=== PATIENT | male | born 1980 | race Caucasian/White ===

== ENCOUNTER 2020-08-03 08:15 | Inpatient (IN) | payer SELFPAY ==
[2020-08-03] MEDS ORDERED: Sodium Chloride 0.9% 10 ML Syringe FLUSH PRN ×2 (08:31→10:48)
--- NOTE | 2020-08-03 08:31 | EDM.PDOC ---
ED HPI GENERAL MEDICAL PROBLEM - General Chief Complaint: General Stated Complaint: SOB, CP Time Seen by Provider: 08/03/20 08:30 Source of Information: Reports: Patient, Family ([id number], Austin. , Kate), Old Records ([facility] chart/EMR) History Limitations: Reports: No Limitations - History of Present Illness INITIAL COMMENTS - FREE TEXT/NARRATIVE: The patient was brought to the emergency room via private automobile by his [id number] for evaluation of progressive heart flutter associated with 7/10 epigastric burning radiating to the retrosternal region with nonspecific fatigue, dizziness, nausea, diaphoresis, and 3 episodes of emesis shortly prior to arrival. Note that the patient was evaluated by his regular provider, JUDY Sandy at the [facility] yesterday with newly diagnosed diabetes mellitus and Metformin started at that time. Initial symptoms started after he woke up on 05/31 at about 6 AM with progressive symptoms since yesterday evening. The patient denies any heart flutter, orthostasis, orthopnea, paresthesias, recent decreased exercise tolerance, or any other anginal-type symptoms. No recent history of other abdominal pain, diarrhea, melena, gross hematochezia, or any food intolerance, including fatty foods, etc. with some recent constipation with last bowel movement about 5 days ago. He denies any gross hematuria, colic, or other UTI symptoms. The patient also denies any recent fever, cough, wheezing, dyspnea, etc.. He denies any known exposure to infection, food poisoning, etc. He did not take his medications this morning. Onset: Gradual Onset Date: 07/29/20 Onset Time: 06:00 Duration: Constant, Getting Worse Location: Reports: Chest (Radiation as above), Abdomen (As above). Denies: Head, Face, Neck, Upper Extremity, Left, Upper Extremity, Right, Radiates to Quality: Reports: Burning Severity: Moderate Improves with: Reports: None Worsens with: Reports: None Context: Reports: Other (As above). Denies: Sick Contact, Trauma Associated Symptoms: Reports: Chest Pain (As above), Diaphoresis, Nausea/Vomi ting, Weakness. Denies: Confusion, Cough, Fever/Chills, Headaches, Loss of Appetite, Malaise, Rash, Seizure, Shortness of Breath, Syncope Treatments BUCK PRESSER: Reports: Other (see below) (None ) Epigastric Pain Score (Numeric/FACES): 7 - Related Data Allergies Allergy/AdvReac Type Severity Reaction Status Date / Time No Known Allergies Allergy Verified 08/03/20 08:28 Home Meds: Home Meds buPROPion HCL [Bupropion Xl] 150 mg PO DAILY 08/03/20 [History] metFORMIN HCl [Metformin HCl] 500 mg PO BID 08/03/20 [History] Past Medical History HEENT History: Reports: Impaired Vision, Otitis Media, Other (See Below). Denies: Allergic Rhinitis, Cataract, Glaucoma, Hard of Hearing, Macular Degeneration, Retinal Detachment Other HEENT History: Soft contact lenses and glasses. Recurrent otitis media with no surgery required. No history of diabetic retinopathy. Cardiovascular History: Reports: Other (See Below). Denies: Afib, Aneurysm, Arrhythmia, Blood Clots/VTE/DVT, CAD, Cardiomyopathy, Heart Failure, Heart Murmur, High Cholesterol, Hypertension, [place], PVD, Syncope Other Cardiovascular History: Patient does not know his cholesterol status. Respiratory History: Reports: None. Denies: Asthma, Bronchitis, Recurrent, COPD, Intubation, Previous, PE, Pneumonia, Recurrent, Pneumothorax, Sleep Apnea, TB Gastrointestinal History: Reports: Gastritis, GERD. Denies: Celiac Disease, Cholelithiasis, Chronic Constipation, Colon Polyp, Fecal Incontinence, GI Bleed, Hepatitis, Helicobacter Pylori, Hiatal Hernia, Inflammatory Bowel Disease, Irritable Bowel Syndrome, Jaundice, Pancreatitis Genitourinary History: Reports: None. Denies: Acute Renal Failure, BPH, Chronic Renal Insuffiency, Diabetic Nephropathy, Renal Calculus, STD, Urinary Incontinence, UTI, Recurrent Musculoskeletal History: Reports: Arthritis, Back Pain, Chronic, Neck Pain, Chronic, Osteoarthritis. Denies: Amputation, Fracture, Gout, RA, SLE Neurological History: Reports: None. Denies: Cerebral Aneurysms, Concussion, CVA, Headaches, Chronic, Head Trauma, Migraines, MS, Neuropathy, Diabetic, Neuropathy, Peripheral, Parkinson's, Seizure, TIA, Vertigo Psychiatric History: Reports: Addiction, Anxiety, Depression, Other (See Below). Denies: Abuse, Victim of, ADD, ADHD, Psych Hospitalization(s), PTSD, Suicide Attempt, Suicidal Ideation Other Psychiatric History: Alcohol and illicit drug use as below. Endocrine/Metabolic History: Reports: Diabetes, Type II, Other (See Below). Denies: Diabetes, Type I, Diabetes Mellitus, Type 3c, Hypothyroidism, Obesity/BMI 30+ Other Endocrine/Metabolic History: AODM newly diagnosed on 08/02/2020 with likely insulin-dependent on 08/03/2020 Hematologic History: Reports: None. Denies: Anemia, Blood Transfusion(s), Iron Deficiency Immunologic History: Reports: None. Denies: AIDS, HIV, SLE Oncologic (Cancer) History: Reports: None. Denies: Basal Cell Carcinoma, Colon, Hodgkin's Lymphoma, Leukemia, Lymphoma, Malignant Melanoma, Non-Hodgkin's Lymphoma, Prostate, Squamous Cell Carcinoma Dermatologic History: Reports: None. Denies: Eczema, Psoriasis - Infectious Disease History Infectious Disease History: Reports: Chicken Pox. Denies: C-Difficile, Helicobacter Pylori, Measles, Meningitis, Mononucleosis, MRSA, Mumps, Novel Coronavirus, Pertussis (Whooping Cough), Rheumatic Fever, Rubella, Scarlet Fever, Shingles, TB, VRE - Past Surgical History Head Surgeries/Procedures: Reports: None HEENT Surgical History: Reports: Oral Surgery, Other (See Below). Denies: Adenoidectomy, Cataract Surgery, Eye Surgery, Laser Surgery, LASIK, Myringotomy w Tube(s), Naso-Sinus Surgery, Tonsillectomy Other HEENT Surgeries/Procedures: [place] teeth extraction x4. Cardiovascular Surgical History: Reports: None. Denies: Varicose Respiratory Surgical History: Reports: None. Denies: Thoracentesis GI Surgical History: Reports: EGD, Other (See Below). Denies: Appendectomy, Cholecystectomy, Colonoscopy, Hernia, Abdominal, Hernia, Inguinal, Hernia Repair/Other Other GI Surgeries/Procedures: EGD with negative biopsy for H. pylori however mild positive gastritis on 08/21/2005. Male Surgical History: Reports: Circumcision, Other (See Below). Denies: Vasectomy Other Male Surgeries/Procedures: Circumcision as an infant. Endocrine Surgical History: Reports: None. Denies: Thyroid Biopsy Neurological Surgical History: Reports: None, Scoliosis (About carpal tunnel or ganglion cysts). Denies: C-Spine (Neck or back surgery), Discectomy, Laminectomy, Lumbar Spine, Sacral Spine, Spinal Fusion, Thoracic Spine, Vertebroplasty Musculoskeletal Surgical History: Reports: None. Denies: Arthroscopic Procedure, Carpal Tunnel, Ganglion Cyst, Joint Replacement, ORIF (Scope procedure), Shoulder Surgery Oncologic Surgical History: Reports: None Dermatological Surgical History: Reports: None (Note) - Past Imaging History Past Imaging History: Reports: CAT Scan (Head on 03/24/2005.), Ultrasound (Soft tissue ultrasound of the cervical region on 01/20/2012 and 10/31/2011), Venous Do ppler (Negative of the left leg on 09/24/2011.) Social & Family History - Family History HEENT: Reports: None. Denies: Glaucoma, Macular Degeneration, Retinal Detachment Cardiac: Reports: None. Denies: Afib, Aneurysm, Arrhythmia, Blood Clots/VTE/DVT, CAD, Heart Failure, Heart Murmur, High Cholesterol, Hypertension, WA, Pacemaker, Syncope Respiratory: Reports: None. Denies: Asthma, COPD, PE, Pneumothorax, Sleep Apnea GI: Reports: Bowel Obstruction, Other (See Below). Denies: Celiac Disease, Cholelithiasis, Colon Polyps, GERD, GI bleed, Inflammatory Bowel Disease, Irritable Bowel Syndrome, PUD Other GI Family History: Father with intestinal torsion with secondary obstruction. : Reports: None. Denies: Renal Calculus, Renal Disease/Insufficiency OBGYN: Reports: None. Denies: Endometriosis, Recurrent Spontaneous Musculoskeletal: Reports: Arthritis, Osteoarthritis, RA, Other (See Below). Denies: Gout, SLE Other Musculoskeletal Family History: Paternal grandmother with rheumatoid arthritis. Neurological: Reports: Alzheimers Disease, Dementia, Other (See Below). Denies: CVA, Migraines, MS, Parkinson's, Seizure, TIA Other Neurological Family History: Paternal grandmother with organic brain syndrome. Psychiatric: Reports: None. Denies: Abuse, Victim of, ADD, ADHD, Anxiety, Depression, Psych Hospitalization(s), PTSD, Suicide Attempt Endocrine/Metabolic: Reports: None. Denies: Diabetes, Gestational, Diabetes, Type I, Diabetes, type II, Diabetes Mellitus, Type 3c, Hypothyroidism, IDDM Hematologic: Reports: None. Denies: Anemia, SLE Immunologic: Reports: None. Denies: AIDS, HIV, SLE Dermatologic: Reports: None. Denies: Eczema, Psoriasis Oncologic: Reports: None. Denies: Colon, Hodgkin's Lymphoma, Leukemia, Lymphoma, Non-Hodgkin's Lymphoma, Prostate, Skin - Tobacco Use Tobacco Use Status *Q: Former Tobacco User Tobacco Use Within Last Twelve Months: No Years of Tobacco use: 5 Packs/Tins Daily: 1 Packs/Tins Daily Comment: Previous chewing tobacco and cigarette use between ages 11 and 16 with patient smoking 1 pack/day. Used Tobacco, but Quit: Yes Smoking Cessation Information Provided To Patient: No Second Hand Smoke Exposure: Yes Source of Second Hand Smoke Exposure: smokes Second Hand Smoke Education Provided: Yes - Caffeine Use Caffeine Use: Reports: None. Denies: Coffee, Energy Drinks, Soda, Tea - Alcohol Use Alcohol Use History: Yes Days Per Week of Alcohol Use: 7 Number of Drinks Per Day: 10 Number of Drinks Per Day Comment: Alcohol abuse starting at age 19 with beer, mixed drinks and wine intake. No previous alcohol treatment. Total Drinks Per Week: 70 Date of Last Drink: 07/28/20 Alcohol Use in Last Twelve Months: Yes Alcohol Use Frequency: Binges, Daily - Recreational Drug Use Recreational Drug Use: Yes Drug Use in Last 12 Months: Yes Recreational Drug Type: Reports: Cocaine (Sniffs cocaine every few months and started using in college as a teenager), Marijuana/Hashish (Started marijuana use in his 20s with current weekly use.). Denies: Amphetamines (Speed), Heroin, Inhalants (Glues, Solvents, Aerosols), LSD (Acid), Methamphetamine, Morphine, Oxycodone - Living Situation & Occupation Living situation: Reports: (November 2014 with no children together), (First with no children from that relationship), with Family (Second and 1 child from her previous marriage insisted) Occupation: Employed (Tee and welder/fitter) ED ROS GENERAL - Review of Systems Review Of Systems: Comprehensive ROS is negative, except as noted in HPI. ED EXAM, GENERAL - Physical Exam Exam: See Below Exam Limited By: No Limitations General Appearance: Alert, WD/WN, No Apparent Distress, Anxious (Moderate including moderate hyperventilation) Eye Exam: Bilateral Eye: EOMI, Normal Inspection (No vertigo or nystagmus), PERRL Ears: Normal External Exam, Normal Canal, Hearing Grossly Normal, Normal TMs Nose: Normal Inspection, Normal Mucosa, No Blood Throat/Mouth: Normal Lips, Normal Teeth, Normal Gums, Normal Voice, No Airway Compromise. No: Normal Oropharynx (Dry oral mucosa), Dysphagia, Inflammation, Perioral Cyanosis Head: Atraumatic, Normocephalic. No: Facial Swelling, Facial Tenderness, Sinus Tenderness Neck: Normal Inspection, Supple, Non-Tender, Full Range of Motion. No: Carotid Bruit, Lymphadenopathy (L), Lymphadenopathy (R), Thyromegaly Respiratory/Chest: No Respiratory Distress, Lungs Clear, Normal Breath Sounds, No Accessory Muscle Use, Chest Non-Tender. No: Pleural Rub, Retractions Cardiovascular: Normal Peripheral Pulses, No Edema, No Gallop, No JVD, No Murmur, No Rub, Tachycardia (Regular rhythm). No: Gallop/S3, Gallop/S4, Friction Rub Peripheral Pulses: 2+: Radial (L), Radial (R), Dorsalis Pedis (L), Dorsalis Pedis (R) GI/Abdominal: Normal Bowel Sounds, Soft, Non-Tender, No Organomegaly, No Distention, No Abnormal Bruit, No Mass, Pelvis Stable. No: Guarding (Male) Exam: Deferred Rectal (Males) Exam: Deferred Back Exam: Normal Inspection, Full Range of Motion. No: CVA Tenderness (L), CVA Tenderness (R), Muscle Spasm Extremities: Normal Inspection, Normal Range of Motion, Non-Tender, No Pedal Edema, Normal Capillary Refill. No: Anum's Sign Neurological: Alert, Oriented, CN II-XII Intact, Normal Cognition, Normal Gait, Normal Reflexes (Negative Babinski's), No Motor/Sensory Deficits Psychiatric: Anxious (Moderate as above). No: Depressed Mood Skin Exam: Warm, Dry, Intact, Normal Color, No Rash, Diaphoretic (Initially at time of patient arrival Per nurses history however resolved at time of my exam). No: Petechiae Lymphatic: No Adenopathy #1 Interpretation EKG Date: 08/03/20 Time: 08:50 Rhythm: Other (Sinus tachycardia) Rate (Beats/Min): 104 [place]: Normal (Neutral) P-Wave: Enlarged (Moderate diffuse biphasic P waves with mild poor wave progression in the anterior leads) QRS: Normal (0.09 seconds) ST-T: Other (Noisy baseline with nonspecific ST changes with borderline peaked T waves) QT: Normal ME/PQ Interval: 0.18 seconds Comparison: NA - No Prior EKG EKG Interpretation Comments: 1. No acute ischemic changes 2. Left atrial enlargement 3. Sinus tachycardia Course - Vital Signs Last Recorded V/S: Last Vital Signs Temp 36.6 C 08/03/20 08:21 Pulse 110 H 08/03/20 08:50 Resp 30 H 08/03/20 08:50 BP 149/93 H 08/03/20 08:50 Pulse Ox 100 08/03/20 08:50 Vital Signs - 24 hr 08/03/20 08/03/20 08/03/20 08:21 08:31 08:42 Temperature [ 36.6 C Temporal] Pulse, 127 H Peripheral Pulse, 136 H 120 H Peripheral [ Pulse Oximetry] Respiratory 40 H 28 H Rate Blood Pressure 153/92 H Blood Pressure 153/92 H 136/97 H [Left Upper Arm ] O2 Sat by Pulse 100 100 Oximetry 08/03/20 08:50 Temperature [ Temporal] Pulse, Peripheral Pulse, 110 H Peripheral [ Pulse Oximetry] Respiratory 30 H Rate Blood Pressure Blood Pressure 149/93 H [Left Upper Arm ] O2 Sat by Pulse 100 Oximetry - Orders/Labs/Meds Orders: Active Orders 24 hr Category Date Time Status Blood Glucose Check, Bedside [RC] STAT Care 08/03/20 08:15 Ordered Blood Glucose Check, Bedside [RC] STAT Care 08/03/20 09:41 Ordered Cardiac Monitoring [RC] . DIRECTED Care 08/03/20 08:31 Active EKG Documentation Completion [RC] ASDIRECTED Care 08/03/20 08:31 Active Oxygen Therapy, ED [RC] PRN Care 08/03/20 08:31 Active Peripheral IV Care [RC] . DIRECTED Care 08/03/20 08:31 Active Pulse Oximetry [RC] CONTINUOUS Care 08/03/20 08:31 Active Up With Assistance [RC] PFP Care 08/03/20 08:31 Active Vital Signs [RC] PFP Care 08/03/20 08:31 Active Nothing per Oral Now Diet [DIET] Diet 08/03/20 Breakfast Active Chest 1V Frontal [CR] Stat Exams 08/03/20 08:31 Ordered Chest PE [Ang Chest] [CT] Stat Exams 08/03/20 09:42 Ordered CULTURE BLOOD [BC] Stat Lab 08/03/20 08:36 Ordered CULTURE BLOOD [BC] Stat Lab 08/03/20 08:36 Ordered CULTURE URINE [RM] Routine Lab 08/03/20 08:31 Ordered URINALYSIS W/MICROSCOPIC [UA W/MICROSCOPIC] [URIN] Lab 08/03/20 08:34 Ordered Routine Dextrose 50% in Water Med 08/03/20 08:35 Active 50 ml IV ASDIRECTED PRN Dextrose 50% in Water Med 08/03/20 09:46 Ordered 50 ml IV ASDIRECTED PRN Glucagon,Human Recombinant [GlucaGen] Med 08/03/20 08:35 Active 1 mg IM ASDIRECTED PRN Glucagon,Human Recombinant [GlucaGen] Med 08/03/20 09:46 Ordered 1 mg IM ASDIRECTED PRN Sodium Chloride 0.9% [Normal Saline] 1,000 ml Med 08/03/20 09:44 Ordered IV .BOLUS Sodium Chloride 0.9% [Saline Flush] Med 08/03/20 08:31 Active 10 ml FLUSH ASDIRECTED PRN Blood Culture x2 Reflex Set [OM.PC] Urgent Oth 08/03/20 08:36 Ordered Isolation [COMM] Routine Ot 08/03/20 08:35 Active Obtain Past Medical Record [OM.PC] Urgent Oth 08/03/20 08:31 Active Peripheral IV Insertion Adult [OM.PC] Stat Oth 08/03/20 08:31 Ordered Resuscitation Status Stat Resus Stat 08/03/20 08:31 Ordered Medication Orders Dextrose/Water (50% Dextrose In Water 50 Ml Syringe) 50 ml IV ASDIRECTED PRN PRN Reason: Hypoglycemia Dextrose/Water (50% Dextrose In Water 50 Ml Syringe) 50 ml IV ASDIRECTED PRN PRN Reason: Hypoglycemia Glucagon (Glucagon,Human Recombinant 1 Mg Vial) 1 mg IM ASDIRECTED PRN PRN Reason: Hypoglycemia Glucagon (Glucagon,Human Recombinant 1 Mg Vial) 1 mg IM ASDIRECTED PRN PRN Reason: Hypoglycemia Sodium Chloride (Normal Saline) 1,000 mls @ 999 mls/hr IV .BOLUS ONE Stop: 08/03/20 10:44 Last Admin: 08/03/20 10:00 Dose: 999 mls/hr Documented by: Insulin Human Regular 100 unit (/ Sodium Chloride) 100 mls @ 9.072 mls/hr IV TITRATE EMILEE; Protocol Last Admin: 08/03/20 10:32 Dose: 0.1 units/kg/hr, 9.072 mls/hr Documented by: Sodium Chloride (Sodium Chloride 0.9% 10 Ml Syringe) 10 ml FLUSH ASDIRECTED PRN PRN Reason: Keep Vein Open Labs: Laboratory Tests 08/03/20 08/03/20 08/03/20 Range/Units 08:30 08:30 08:30 WBC 17.2 H (4.0-10.2) K/uL RBC 5.49 H (4.33-5.41) M/uL Hgb 17.3 H (13.1-16.8) g/dL Hct 49.9 H (39.0-49.0) % MCV 90.9 (84.0-98.0) fL MCH 31.5 (28.2-33.3) pg MCHC 34.7 (31.7-36.0) g/dL RDW 12.5 (11.2-14.1) % Plt Count 443 H (150-350) K/uL Neut % (Auto) 89.6 H (45.0-80.0) % Lymph % (Auto) 4.7 L (10.0-50.0) % Lucas % (Auto) 5.4 (2.0-14.0) % Eos % (Auto) 0.1 (0.0-5.0) % Baso % (Auto) 0.2 (0.0-2.0) % Neut # (Auto) 15.39 H (1.40-7.00) K/uL Lymph # (Auto) 0.81 (0.50-3.50) K/uL Lucas # (Auto) 0.92 (0.00-1.00) K/uL Eos # (Auto) 0.01 (0.00-0.50) K/uL Baso # (Auto) 0.04 (0.00-0.20) K/uL PT 9.4 L (9.5-12.0) SEC INR 0.9 APTT 24.7 (24.5-32.8) SEC D-Dimer, Quantitative 1820 H (0-400) ng/mL Sodium (136-145) mmol/L Potassium (3.5-5.1) mmol/L Chloride (98-107) mmol/L Carbon Dioxide (21.0-32.0) mmol/L BUN (7-18) mg/dL Creatinine (0.51-1.17) mg/dL Est Cr Clr Drug Dosing Estimated GFR (MDRD) mL/min Glucose (70-99) mg/dL POC Glucose (70-99) mg/dL Lactic Acid (0.4-2.0) mmol/L Uric Acid (2.6-7.2) mg/dL Calcium (8.5-10.1) mg/dL Phosphorus (2.6-4.7) mg/dL Magnesium (1.8-2.4) mg/dL Total Bilirubin (0.2-1.0) mg/dL AST (15-37) U/L ALT (12-78) U/L Alkaline Phosphatase (46-116) IU/L Creatine Kinase (26-308) U/L Creatine Kinase Index (0.0-2.5) % CK-MB (CK-2) (0.00-3.60) ng/mL Troponin I (0.000-0.056) ng/mL NT-Pro-B Natriuret Pep (0-125) pg/mL Total Protein (6.4-8.2) g/dL Albumin (3.4-5.0) g/dL TSH, Ultra Sensitive (0.358-3.740) mIU/mL Ketones SARS-CoV-2 RNA (ALEX) (NEGATIVE) 08/03/20 08/03/20 08/03/20 Range/Units 08:30 08:30 08:30 WBC (4.0-10.2) K/uL RBC (4.33-5.41) M/uL Hgb (13.1-16.8) g/dL Hct (39.0-49.0) % MCV (84.0-98.0) fL MCH (28.2-33.3) pg MCHC (31.7-36.0) g/dL RDW (11.2-14.1) % Plt Count (150-350) K/uL Neut % (Auto) (45.0-80.0) % Lymph % (Auto) (10.0-50.0) % Lucas % (Auto) (2.0-14.0) % Eos % (Auto) (0.0-5.0) % Baso % (Auto) (0.0-2.0) % Neut # (Auto) (1.40-7.00) K/uL Lymph # (Auto) (0.50-3.50) K/uL Lucas # (Auto) (0.00-1.00) K/uL Eos # (Auto) (0.00-0.50) K/uL Baso # (Auto) (0.00-0.20) K/uL PT (9.5-12.0) SEC INR APTT (24.5-32.8) SEC D-Dimer, Quantitative (0-400) ng/mL Sodium 134 L (136-145) mmol/L Potassium 4.2 (3.5-5.1) mmol/L Chloride 93 L (98-107) mmol/L Carbon Dioxide 4.2 L* (21.0-32.0) mmol/L BUN 16 (7-18) mg/dL Creatinine 1.22 H (0.51-1.17) mg/dL Est Cr Clr Drug Dosing TNP Estimated GFR (MDRD) > 60 mL/min Glucose 495 H* (70-99) mg/dL POC Glucose (70-99) mg/dL Lactic Acid 3.7 H (0.4-2.0) mmol/L Uric Acid 10.3 H (2.6-7.2) mg/dL Calcium 10.2 H (8.5-10.1) mg/dL Phosphorus 7.2 H (2.6-4.7) mg/dL Magnesium 2.1 (1.8-2.4) mg/dL Total Bilirubin 0.4 (0.2-1.0) mg/dL AST 10 L (15-37) U/L ALT 34 (12-78) U/L Alkaline Phosphatase 106 (46-116) IU/L Creatine Kinase 46 (26-308) U/L Creatine Kinase Index 3.7 H (0.0-2.5) % CK-MB (CK-2) 1.70 (0.00-3.60) ng/mL Troponin I 0.000 (0.000-0.056) ng/mL NT-Pro-B Natriuret Pep 62 (0-125) pg/mL Total Protein 9.4 H (6.4-8.2) g/dL Albumin 4.9 (3.4-5.0) g/dL TSH, Ultra Sensitive 2.377 (0.358-3.740) mIU/mL Ketones SARS-CoV-2 RNA (ALEX) (NEGATIVE) 08/03/20 08/03/20 08/03/20 Range/Units 08:40 08:40 09:46 WBC (4.0-10.2) K/uL RBC (4.33-5.41) M/uL Hgb (13.1-16.8) g/dL Hct (39.0-49.0) % MCV (84.0-98.0) fL MCH (28.2-33.3) pg MCHC (31.7-36.0) g/dL RDW (11.2-14.1) % Plt Count (150-350) K/uL Neut % (Auto) (45.0-80.0) % Lymph % (Auto) (10.0-50.0) % Lucas % (Auto) (2.0-14.0) % Eos % (Auto) (0.0-5.0) % Baso % (Auto) (0.0-2.0) % Neut # (Auto) (1.40-7.00) K/uL Lymph # (Auto) (0.50-3.50) K/uL Lucas # (Auto) (0.00-1.00) K/uL Eos # (Auto) (0.00-0.50) K/uL Baso # (Auto) (0.00-0.20) K/uL PT (9.5-12.0) SEC INR APTT (24.5-32.8) SEC D-Dimer, Quantitative (0-400) ng/mL Sodium (136-145) mmol/L Potassium (3.5-5.1) mmol/L Chloride (98-107) mmol/L Carbon Dioxide (21.0-32.0) mmol/L BUN (7-18) mg/dL Creatinine (0.51-1.17) mg/dL Est Cr Clr Drug Dosing Estimated GFR (MDRD) mL/min Glucose (70-99) mg/dL POC Glucose 456 H* (70-99) mg/dL Lactic Acid (0.4-2.0) mmol/L Uric Acid (2.6-7.2) mg/dL Calcium (8.5-10.1) mg/dL Phosphorus (2.6-4.7) mg/dL Magnesium (1.8-2.4) mg/dL Total Bilirubin (0.2-1.0) mg/dL AST (15-37) U/L ALT (12-78) U/L Alkaline Phosphatase (46-116) IU/L Creatine Kinase (26-308) U/L Creatine Kinase Index (0.0-2.5) % CK-MB (CK-2) (0.00-3.60) ng/mL Troponin I (0.000-0.056) ng/mL NT-Pro-B Natriuret Pep (0-125) pg/mL Total Protein (6.4-8.2) g/dL Albumin (3.4-5.0) g/dL TSH, Ultra Sensitive (0.358-3.740) mIU/mL Ketones Small-20 mg/dl SARS-CoV-2 RNA (ALEX) Negative (NEGATIVE) Blood cultures x2 were collected Stat Accu-Chek on arrival 489 mg percent Stat Accu-Chek at 9:41 AM 456 mg percent Urine specimen with culture and sensitivity could not be collected prior to admission. Microbiology 08/03/20 08:55 Influenza Type A Antigen Screen - Final Nasal, Unspecified NEGATIVE INFLUENZA A VIRUS AG REFERENCE RANGE: NEGATIVE Influenza Type B Antigen Screen - Final NEGATIVE INFLUENZA B VIRUS AG REFERENCE RANGE: NEGATIVE Meds: Medications Generic Name Dose Route Start Last Admin Trade Name Freq PRN Reason Stop Dose Admin Dextrose/Water 50 ml 08/03/20 08:35 50% Dextrose In Water 50 Ml Syringe IV ASDIRECTED PRN Hypoglycemia Dextrose/Water 50 ml 08/03/20 09:46 50% Dextrose In Water 50 Ml Syringe IV ASDIRECTED PRN Hypoglycemia Glucagon 1 mg 08/03/20 08:35 Glucagon,Human Recombinant 1 Mg Vial IM ASDIRECTED PRN Hypoglycemia Glucagon 1 mg 08/03/20 09:46 Glucagon,Human Recombinant 1 Mg Vial IM ASDIRECTED PRN Hypoglycemia Sodium Chloride 1,000 mls @ 999 mls/hr 08/03/20 09:44 08/03/20 10:00 Normal Saline IV 08/03/20 10:44 999 mls/hr .BOLUS ONE Administration Insulin Human Regular 100 unit 100 mls @ 9.072 mls/hr 08/03/20 10:15 08/03/20 10:32 / Sodium Chloride IV 0.1 units/kg/hr TITRATE EMILEE 9.072 mls/hr Administration Protocol 0.1 UNITS/KG/HR Sodium Chloride 10 ml 08/03/20 08:31 Sodium Chloride 0.9% 10 Ml Syringe FLUSH ASDIRECTED PRN Keep Vein Open Discontinued Medications Generic Name Dose Route Start Last Admin Trade Name Kristi PRN Reason Stop Dose Admin Calcium Acetate 667 mg 08/03/20 09:42 08/03/20 10:21 Calcium Acetate 667 Mg Cap PO 08/03/20 09:43 667 mg ONETIME ONE Administration Ceftriaxone Sodium 2 gm 08/03/20 10:11 08/03/20 10:23 Ceftriaxone 2 Gm Vial IVPUSH 08/03/20 10:12 2 gm ONETIME ONE Administration Diazepam 2.5 mg 08/03/20 08:33 08/03/20 08:46 Diazepam 10 Mg/2 Ml Syringe IVPUSH 08/03/20 08:34 2.5 mg ONETIME ONE Administration Diazepam 2.5 mg 08/03/20 09:51 08/03/20 10:11 Diazepam 10 Mg/2 Ml Syringe IVPUSH 08/03/20 09:52 2.5 mg ONETIME ONE Administration Famotidine 40 mg 08/03/20 08:31 08/03/20 09:00 Famotidine 20 Mg/2 Ml Sdv IVPUSH 08/03/20 08:32 40 mg ONETIME ONE Administration Sodium Chloride 1,000 mls @ 999 mls/hr 08/03/20 08:33 08/03/20 08:55 Normal Saline IV 08/03/20 09:33 999 mls/hr .BOLUS ONE Administration Ceftriaxone Sodium 1 gm/ 100 mls @ 200 mls/hr 08/03/20 09:41 08/03/20 10:13 Sodium Chloride IV 08/03/20 10:10 Not Given ONETIME ONE Insulin Human Regular 10 unit 08/03/20 08:35 08/03/20 08:56 Insulin Regular, Human 100 Units/Ml 3 Ml Vial IV 08/03/20 08:36 10 units ONETIME ONE Administration Insulin Human Regular 10 unit 08/03/20 09:46 08/03/20 09:55 Insulin Regular, Human 100 Units/Ml 3 Ml Vial IV 08/03/20 09:47 10 units ONETIME ONE Administration Iopamidol 100 ml 08/03/20 09:44 08/03/20 10:34 Iopamidol 755 Mg/Ml 100 Ml Bottle IVPUSH 08/03/20 09:45 100 ml ONETIME STA Administration Iopamidol Confirm 08/03/20 09:51 Iopamidol 755 Mg/Ml 100 Ml Bottle Administered 08/03/20 09:52 Dose 100 ml .ROUTE .STK-MED ONE Metoprolol Tartrate 2.5 mg 08/03/20 08:31 08/03/20 08:42 Metoprolol Tartrate 5 Mg/5 Ml Sdv IVPUSH 08/03/20 08:32 2.5 mg ONETIME ONE Administration - Radiology Interpretation Free Text/Narrative:: [employer] showed initial sinus tachycardia in the 120s to 130s with improvement to the [id number] after therapy as below. Occasional PVCs noted with no ectopy or arrhythmia. Chest x-ray, portable, shows mild pulmonary obstructive disease with no cardiomegaly, CHF, pulmonary infiltrates, pneumothorax, etc. Departure - Departure Time of Disposition: 10:40 Disposition: Admitted As Inpatient 64 Condition: Fair Clinical Impression: IDDM (insulin dependent diabetes mellitus), Sinus tachycardia, Dehydration, Peptic reflux disease, Ketoacidosis, D-dimer, elevated, Tobacco abuse counseling, Illicit drug use, continuous, Mixed anxiety depressive disorder, Hyperphosphatemia, PVC's (premature ventricular contractions), Lactic acid increased, Elevated blood pressure reading, Hyponatremia - Discharge Information *PRESCRIPTION DRUG MONITORING PROGRAM REVIEWED*: Not Applicable *COPY OF PRESCRIPTION DRUG MONITORING REPORT IN PATIENT MOHINDER: Not Applicable Sepsis Event Note (ED) - Evaluation Sepsis Screening Result: No Definite Risk - Focused Exam Vital Signs: Vital Signs Temp Pulse Pulse Resp BP BP Pulse Ox 08/03/20 08:50 110 H 30 H 149/93 H 100 08/03/20 08:42 127 H 153/92 H 08/03/20 08:31 120 H 28 H 136/97 H 100 08/03/20 08:21 36.6 C 136 H 40 H 153/92 H 100 - Problem List & Annotations (1) IDDM (insulin dependent diabetes mellitus) SNOMED Code(s): 86198402 Code(s): ICY7138 - Status: Acute Priority: High Current Visit: Yes Onset Date: 08/03/20 Annotation/Comment:: Newly diagnosed diabetes mellitus on 08/02/2020 as above with patient initiated on low-dose Metformin therapy. Patient is likely insulin-dependent with 10 units of Humulin regular IV x2 were given in the emergency with continuation of IV Humulin regular infusion as per standard protocol. Note mild ketoacidosis with secondary hyperventilation, etc. Glycosylated hemoglobin and lipid profile to be conducted in the a.m. No chest pain or anginal type symptoms with normal EKG and cardiac enzymes, which will be repeated in the a.m. (2) Ketoacidosis SNOMED Code(s): 27760886 Code(s): E87.2 - ACIDOSIS Status: Acute Priority: High Current Visit: Yes Onset Date: 08/03/20 Annotation/Comment:: Decompensated AODM, which is now insulin-dependent, as above. Consider blood gases depending on his clinical course. (3) Lactic acid increased SNOMED Code(s): 47652404 Code(s): E87.2 - ACIDOSIS Status: Acute Priority: High Current Visit: Yes Onset Date: 08/03/20 Annotation/Comment:: Note ketoacidosis as above. No direct indication of sepsis, however aggressive IV hydration as above with additional initiation of IV Rocephin therapy in the emergency room. Sepsis protocol to be followed with repeat lactic acid level in about 3 hours with other blood work secondary to his decompensated IDDM. (4) Dehydration SNOMED Code(s): 84439590 Code(s): E86.0 - DEHYDRATION Status: Acute Priority: High Current Visit: Yes Onset Date: 08/03/20 Annotation/Comment:: Dehydration secondary to decompensated diabetes mellitus, which is now insulin-dependent. Aggressive IV hydration, including initial 2 L of normal saline IV bolus, which was started in the emergency room. Further aggressive IV hydration as per standard insulin protocol. (5) D-dimer, elevated SNOMED Code(s): 775339384 Code(s): R79.89 - OTHER SPECIFIED ABNORMAL FINDINGS OF BLOOD CHEMISTRY Status: Acute Priority: High Current Visit: Yes Onset Date: 08/03/20 Annotation/Comment:: CTA of the chest using PE protocol was ordered in the emergency room with results pending at time of dictation. Subcu Lovenox at VTE dose for now, although no clinical evidence of DVT or PE. Consider venous Doppler studies of the lower extremities, although this evaluation will not be available in this facility until 08/06. (6) Elevated blood pressure reading SNOMED Code(s): 55749866 Code(s): R03.0 - ELEVATED BLOOD-PRESSURE READING, W/O DIAGNOSIS OF HTN Status: Acute Priority: Medium Current Visit: Yes Onset Date: 08/03/20 Annotation/Comment:: Secondary to current decompensated diabetes mellitus. No previous history of hypertension. Low-dose IV Lopressor was given both for heart rate and blood pressure control in the emergency room. Continue to observe for now. (7) Hyperphosphatemia SNOMED Code(s): 03122917 Code(s): E83.39 - OTHER DISORDERS OF PHOSPHORUS METABOLISM Status: Acute Priority: High Current Visit: Yes Onset Date: 08/03/20 Annotation/Comment:: PhosLo initiated in the emergency room. (8) Illicit drug use, continuous SNOMED Code(s): 572225535 Code(s): F19.90 - OTHER PSYCHOACTIVE SUBSTANCE USE, UNSPECIFIED, U NCOMPLICATED Status: Chronic Priority: High Current Visit: Yes Annotation/Comment:: Note illicit drug use as above. Patient denies IV drug use. No evidence of withdrawal symptoms at this time. IV diazepam given in the emergency room as above for control of his anxiety, distress, hyperventilation, etc. (9) Mixed anxiety depressive disorder SNOMED Code(s): 239161014 Code(s): F41.8 - OTHER SPECIFIED ANXIETY DISORDERS Status: Chronic Priority: High Current Visit: Yes Annotation/Comment:: Moderate control with illicit drug use and alcohol abuse as above. Continue to observe closely with medication adjustment depending on his clinical course. (10) PVC's (premature ventricular contractions) SNOMED Code(s): 61126302 Code(s): I49.3 - VENTRICULAR PREMATURE DEPOLARIZATION Status: Acute Priority: Medium Current Visit: Yes Onset Date: 08/03/20 Annotation/Comment:: Nonsymptomatic. Observe for now. Note IV Lopressor given as above. (11) Peptic reflux disease SNOMED Code(s): 528763993 Code(s): K21.9 - GASTRO-ESOPHAGEAL REFLUX DISEASE WITHOUT ESOPHAGITIS Status: Chronic Priority: Medium Current Visit: Yes Annotation/Comment:: High-dose IV Pepcid given as GI prophylaxis with complete resolution of those symptoms prior to admission. (12) Sinus tachycardia SNOMED Code(s): 17409336 Code(s): R00.0 - TACHYCARDIA, UNSPECIFIED Status: Acute Priority: High Current Visit: Yes Onset Date: 08/03/20 Annotation/Comment:: Secondary to ketoacidosis as above. Continue aggressive IV hydration, etc. (13) Tobacco abuse counseling SNOMED Code(s): 532493609, 903989832, 872956122 Code(s): Z71.6 - TOBACCO ABUSE COUNSELING Status: Chronic Priority: Medium Current Visit: Yes Annotation/Comment:: smokes. Tobacco cessation information at discharge. Patient should also discontinue marijuana use. (14) Hyponatremia SNOMED Code(s): 81332542 Code(s): E87.1 - HYPO-OSMOLALITY AND HYPONATREMIA Status: Acute Priority: Medium Current Visit: Yes Onset Date: 08/03/20 Annotation/Comment:: IV fluids as above. - Problem List Review Problem List Initiated/Reviewed/Updated: Yes - My Orders Last 24 Hours: My Active Orders 08/03/20 Breakfast Nothing per Oral Now Diet [DIET] 08/03/20 08:15 Blood Glucose Check, Bedside [RC] STAT 08/03/20 08:31 Cardiac Monitoring [RC] . DIRECTED EKG Documentation Completion [RC] ASDIRECTED Oxygen Therapy, ED [RC] PRN Peripheral IV Care [RC] . DIRECTED Pulse Oximetry [RC] CONTINUOUS Up With Assistance [RC] PFP Vital Signs [RC] PFP Chest 1V Frontal [CR] Stat CULTURE URINE [RM] Routine Sodium Chloride 0.9% [Saline Flush] 10 ml FLUSH ASDIRECTED PRN Obtain Past Medical Record [OM.PC] Urgent Peripheral IV Insertion Adult [OM.PC] Stat Resuscitation Status Stat 08/03/20 08:34 URINALYSIS W/MICROSCOPIC [UA W/MICROSCOPIC] [URIN] Routine 08/03/20 08:35 Dextrose 50% in Water 50 ml IV ASDIRECTED PRN Glucagon,Human Recombinant [GlucaGen] 1 mg IM ASDIRECTED PRN Isolation [COMM] Routine 08/03/20 08:36 CULTURE BLOOD [BC] Stat CULTURE BLOOD [BC] Stat Blood Culture x2 Reflex Set [OM.PC] Urgent 08/03/20 09:41 Blood Glucose Check, Bedside [RC] STAT 08/03/20 09:42 Chest PE [Ang Chest] [CT] Stat 08/03/20 09:44 Sodium Chloride 0.9% [Normal Saline] 1,000 ml IV .BOLUS 08/03/20 09:46 Dextrose 50% in Water 50 ml IV ASDIRECTED PRN Glucagon,Human Recombinant [GlucaGen] 1 mg IM ASDIRECTED PRN - Assessment/Plan Admission H&P: Please use this note as an admission H&P Last 24 Hours: My Active Orders 08/03/20 Breakfast Nothing per Oral Now Diet [DIET] 08/03/20 08:15 Blood Glucose Check, Bedside [RC] STAT 08/03/20 08:31 Cardiac Monitoring [RC] . DIRECTED EKG Documentation Completion [RC] ASDIRECTED Oxygen Therapy, ED [RC] PRN Peripheral IV Care [RC] . DIRECTED Pulse Oximetry [RC] CONTINUOUS Up With Assistance [RC] PFP Vital Signs [RC] PFP Chest 1V Frontal [CR] Stat CULTURE URINE [RM] Routine Sodium Chloride 0.9% [Saline Flush] 10 ml FLUSH ASDIRECTED PRN Obtain Past Medical Record [OM.PC] Urgent Peripheral IV Insertion Adult [OM.PC] Stat Resuscitation Status Stat 08/03/20 08:34 URINALYSIS W/MICROSCOPIC [UA W/MICROSCOPIC] [URIN] Routine 08/03/20 08:35 Dextrose 50% in Water 50 ml IV ASDIRECTED PRN Glucagon,Human Recombinant [GlucaGen] 1 mg IM ASDIRECTED PRN Isolation [COMM] Routine 08/03/20 08:36 CULTURE BLOOD [BC] Stat CULTURE BLOOD [BC] Stat Blood Culture x2 Reflex Set [OM.PC] Urgent 08/03/20 09:41 Blood Glucose Check, Bedside [RC] STAT 08/03/20 09:42 Chest PE [Ang Chest] [CT] Stat 08/03/20 09:44 Sodium Chloride 0.9% [Normal Saline] 1,000 ml IV .BOLUS 08/03/20 09:46 Dextrose 50% in Water 50 ml IV ASDIRECTED PRN Glucagon,Human Recombinant [GlucaGen] 1 mg IM ASDIRECTED PRN Assessment:: As above Plan: As above. Extensive precautions were given to the patient and his , who are in agreement with the treatment plan. The patient will require about 3-4 days of inpatient/acute care secondary to multiple health problems as above. [facility] physician assumes care later this morning. I will resume patient's care on 08/04.
[2020-08-03] MEDS ORDERED: Glucagon,Human Recombinant 1 MG Vial IM PRN ×2 (08:35→09:46)
[2020-08-03] MEDS ORDERED: 50% Dextrose in Water 50 ML Syringe IV PRN ×2 (08:35→09:46)
[2020-08-03] MEDS: Metoprolol Tartrate 5 MG/5 ML SDV IVPUSH ONE (08:42)
[2020-08-03] MEDS: Sodium Chloride 0.9% 1,000 ML IV ONE ×2 (08:55→10:00)
[2020-08-03] MEDS: Insulin Regular, Human 100 Units/ML 3 ML Vial IV ONE ×2 (08:56→09:55)
[2020-08-03] MEDS: Famotidine 20 MG/2 ML SDV IVPUSH ONE (09:00)
[2020-08-03 09:01] LABS: PTT,PARTIAL THROMBOPLSTIN TIME 24.7 SEC (24.5-32.8)
[2020-08-03 09:08] LABS: CHLORIDE,CL 93 mmol/L (98-107); SODIUM,NA 134 mmol/L (136-145)
[2020-08-03] MEDS ORDERED: Iopamidol 755 Mg/ML 100 ML Bottle ONE (09:51)
[2020-08-03] MEDS: cefTRIAXone 1 GM in Sodium Chloride 0.9% 100 ML IV ONE (10:13)
[2020-08-03] MEDS: Calcium Acetate 667 MG Cap PO ONE (10:21)
[2020-08-03] MEDS: cefTRIAXone 2 GM Vial IVPUSH ONE (10:23)
[2020-08-03] MEDS: Iopamidol 755 Mg/ML 100 ML Bottle IVPUSH STA (10:34)
[2020-08-03] MEDS ORDERED: Temazepam 15 MG Cap PO PRN (10:48)
[2020-08-03] MEDS ORDERED: Enoxaparin 100 MG/1 ML Syringe SUBCUT SCH (11:00)
[2020-08-03] MEDS ORDERED: Acetaminophen 325 MG Tab PO PRN (11:00)
[2020-08-03] MEDS: Sodium Chloride 0.9% 1,000 ML IV SCH (11:15)
[2020-08-03 11:23] LABS: HEMOGLOBIN A1C 13.7 % (4.3-5.7)
[2020-08-03 11:51] LABS: PCO2 ARTERIAL,POC 8 mmHg (35-48)
[2020-08-03 14:05] LABS: PCO2 ARTERIAL,POC 15 mmHg (35-48)
[2020-08-03 14:30] LABS: CHLORIDE,CL 100 mmol/L (98-107); SODIUM,NA 135 mmol/L (136-145)
[2020-08-03] MEDS: Dextrose 5%-0.9% NaCl 1,000 ML IV SCH (14:59)
--- NOTE | 2020-08-03 15:03 | PCM.DCSUM1 ---
Discharge Summary - Hospital Course Free Text/Narrative:: Pt seen in ER by Dr Stein Now transferred to [facility] with DKA Dr Kebede accepting See lab and vitals Brief History: Pt remains in DKA and acidotic Pt transfer to [facility] - Discharge Data Discharge Date: 08/03/20 Discharge Disposition: DC/Tfer to Acute Hospital 02 Condition: Good - Referral to Home Health Primary Care Physician: Patricia Cali NP - Discharge Diagnosis/Problem(s) (1) IDDM (insulin dependent diabetes mellitus) SNOMED Code(s): 59505829 ICD Code: [id number] - Status: Acute Priority: High Current Visit: Yes Onset Date: 08/03/20 Problem Details: Newly diagnosed diabetes mellitus on 08/02/2020 as above with patient initiated on low-dose Metformin therapy. Patient is likely insulin-dependent with 10 units of Humulin regular IV x2 were given in the emergency with continuation of IV Humulin regular infusion as per standard protocol. Note mild ketoacidosis with secondary hyperventilation, etc. Glycosylated hemoglobin and lipid profile to be conducted in the a.m. No chest pain or anginal type symptoms with normal EKG and cardiac enzymes, which will be repeated in the a.m. (2) Ketoacidosis SNOMED Code(s): 72658542 ICD Code: E87.2 - ACIDOSIS Status: Acute Priority: High Current Visit: Yes Onset Date: 08/03/20 Problem Details: Decompensated AODM, which is now insulin-dependent, as above. Consider blood gases depending on his clinical course. - Discharge Plan *PRESCRIPTION DRUG MONITORING PROGRAM REVIEWED*: Not Applicable *COPY OF PRESCRIPTION DRUG MONITORING REPORT IN PATIENT MOHINDER: Not Applicable Home Medications: Home Meds buPROPion HCL [Bupropion Xl] 150 mg PO DAILY 08/03/20 [History] metFORMIN HCl [Metformin HCl] 500 mg PO BID 08/03/20 [History] Forms: ED Department Discharge Referrals: Patricia Cali NP [Primary Care Provider] - - Discharge Summary/Plan Comment DC Time >30 min.: No - General Info Date of Service: 08/03/20 Admission Dx/Problem (Free Text: Pt admitted with DKA Functional Status: Reports: Pain Controlled - Review of Systems HEENT: Reports: No Symptoms Pulmonary: Reports: Shortness of Breath Gastrointestinal: Reports: Abdominal Pain, Nausea, Vomiting Genitourinary: Reports: No Symptoms Musculoskeletal: Reports: No Symptoms, Back Pain Psychiatric: Reports: Confusion - Patient Data Vitals - Most Recent: Last Vital Signs Temp 98.2 F 08/03/20 12:15 Pulse 102 H 08/03/20 14:00 Resp 19 08/03/20 14:00 BP 102/67 08/03/20 14:00 Pulse Ox 100 08/03/20 14:00 Weight - Most Recent: 200 lb Lab Results - Last 24 hrs: Laboratory Results - last 24 hr 08/03/20 08/03/20 08/03/20 Range/Units 08:30 08:30 08:30 WBC 17.2 H (4.0-10.2) K/uL RBC 5.49 H (4.33-5.41) M/uL Hgb 17.3 H (13.1-16.8) g/dL Hct 49.9 H (39.0-49.0) % MCV 90.9 (84.0-98.0) fL MCH 31.5 (28.2-33.3) pg MCHC 34.7 (31.7-36.0) g/dL RDW 12.5 (11.2-14.1) % Plt Count 443 H (150-350) K/uL Neut % (Auto) 89.6 H (45.0-80.0) % Lymph % (Auto) 4.7 L (10.0-50.0) % [place] % (Auto) 5.4 (2.0-14.0) % Eos % (Auto) 0.1 (0.0-5.0) % Baso % (Auto) 0.2 (0.0-2.0) % Neut # (Auto) 15.39 H (1.40-7.00) K/uL Lymph # (Auto) 0.81 (0.50-3.50) K/uL [place] # (Auto) 0.92 (0.00-1.00) K/uL Eos # (Auto) 0.01 (0.00-0.50) K/uL Baso # (Auto) 0.04 (0.00-0.20) K/uL PT 9.4 L (9.5-12.0) SEC INR 0.9 APTT 24.7 (24.5-32.8) SEC D-Dimer, Quantitative 1820 H (0-400) ng/mL POC ABG pH (7.35-7.45) pH POC ABG pCO2 (35-48) mmHg POC ABG pO2 (83-108) mmHg POC ABG HCO3 (22-26) mmol/L POC ABG Total CO2 (23-27) mmol/L POC ABG O2 Sat (95-98) % POC ABG Base Excess (-2-3) mmol/L O2 Delivery Device Oxygen Flow Rate Sodium (136-145) mmol/L Potassium (3.5-5.1) mmol/L Chloride (98-107) mmol/L Carbon Dioxide (21.0-32.0) mmol/L BUN (7-18) mg/dL Creatinine (0.51-1.17) mg/dL Est Cr Clr Drug Dosing Estimated GFR (MDRD) mL/min Glucose (70-99) mg/dL POC Glucose (70-99) mg/dL Hemoglobin A1c (4.3-5.7) % Lactic Acid (0.4-2.0) mmol/L Uric Acid (2.6-7.2) mg/dL Calcium (8.5-10.1) mg/dL Phosphorus (2.6-4.7) mg/dL Magnesium (1.8-2.4) mg/dL Total Bilirubin (0.2-1.0) mg/dL AST (15-37) U/L ALT (12-78) U/L Alkaline Phosphatase (46-116) IU/L Creatine Kinase (26-308) U/L Creatine Kinase Index (0.0-2.5) % CK-MB (CK-2) (0.00-3.60) ng/mL Troponin I (0.000-0.056) ng/mL NT-Pro-B Natriuret Pep (0-125) pg/mL Total Protein (6.4-8.2) g/dL Albumin (3.4-5.0) g/dL Triglycerides (30-150) mg/dL Cholesterol (100-200) mg/dL LDL Cholesterol, Calc (0-100) mg/dL HDL Cholesterol (40-60) mg/dL TSH, Ultra Sensitive (0.358-3.740) mIU/mL Specimen Type Urine Color Urine Appearance Urine pH (5.0-9.0) Ur Specific [place] (1.005-1.030) Urine Protein (NEGATIVE) mg/dL Urine Glucose (UA) (NEGATIVE) mg/dL Urine Ketones (NEGATIVE) mg/dL Urine Occult Blood (NEGATIVE) Urine Nitrite (NEGATIVE) Urine Bilirubin (NEGATIVE) Urine Urobilinogen (0.2-1.0) E.U./dL Ur Leukocyte Esterase (NEGATIVE) Urine RBC /HPF Urine WBC /HPF Ur Epithelial Cells /LPF Urine Bacteria (NONE TO FEW) /HPF Ketones SARS-CoV-2 RNA (ALEX) (NEGATIVE) 08/03/20 08/03/20 08/03/20 Range/Units 08:30 08:30 08:30 WBC (4.0-10.2) K/uL RBC (4.33-5.41) M/uL Hgb (13.1-16.8) g/dL Hct (39.0-49.0) % MCV (84.0-98.0) fL MCH (28.2-33.3) pg MCHC (31.7-36.0) g/dL RDW (11.2-14.1) % Plt Count (150-350) K/uL Neut % (Auto) (45.0-80.0) % Lymph % (Auto) (10.0-50.0) % [place] % (Auto) (2.0-14.0) % Eos % (Auto) (0.0-5.0) % Baso % (Auto) (0.0-2.0) % Neut # (Auto) (1.40-7.00) K/uL Lymph # (Auto) (0.50-3.50) K/uL [place] # (Auto) (0.00-1.00) K/uL Eos # (Auto) (0.00-0.50) K/uL Baso # (Auto) (0.00-0.20) K/uL PT (9.5-12.0) SEC INR APTT (24.5-32.8) SEC D-Dimer, Quantitative (0-400) ng/mL POC ABG pH (7.35-7.45) pH POC ABG pCO2 (35-48) mmHg POC ABG pO2 (83-108) mmHg POC ABG HCO3 (22-26) mmol/L POC ABG Total CO2 (23-27) mmol/L POC ABG O2 Sat (95-98) % POC ABG Base Excess (-2-3) mmol/L O2 Delivery Device Oxygen Flow Rate Sodium 134 L (136-145) mmol/L Potassium 4.2 (3.5-5.1) mmol/L Chloride 93 L (98-107) mmol/L Carbon Dioxide 4.2 L* (21.0-32.0) mmol/L BUN 16 (7-18) mg/dL Creatinine 1.22 H (0.51-1.17) mg/dL Est Cr Clr Drug Dosing TNP Estimated GFR (MDRD) > 60 mL/min Glucose 495 H* (70-99) mg/dL POC Glucose (70-99) mg/dL Hemoglobin A1c (4.3-5.7) % Lactic Acid 3.7 H (0.4-2.0) mmol/L Uric Acid 10.3 H (2.6-7.2) mg/dL Calcium 10.2 H (8.5-10.1) mg/dL Phosphorus 7.2 H (2.6-4.7) mg/dL Magnesium 2.1 (1.8-2.4) mg/dL Total Bilirubin 0.4 (0.2-1.0) mg/dL AST 10 L (15-37) U/L ALT 34 (12-78) U/L Alkaline Phosphatase 106 (46-116) IU/L Creatine Kinase 46 (26-308) U/L Creatine Kinase Index 3.7 H (0.0-2.5) % CK-MB (CK-2) 1.70 (0.00-3.60) ng/mL Troponin I 0.000 (0.000-0.056) ng/mL NT-Pro-B Natriuret Pep 62 (0-125) pg/mL Total Protein 9.4 H (6.4-8.2) g/dL Albumin 4.9 (3.4-5.0) g/dL Triglycerides (30-150) mg/dL Cholesterol (100-200) mg/dL LDL Cholesterol, Calc (0-100) mg/dL HDL Cholesterol (40-60) mg/dL TSH, Ultra Sensitive 2.377 (0.358-3.740) mIU/mL Specimen Type Urine Color Urine Appearance Urine pH (5.0-9.0) Ur Specific [place] (1.005-1.030) Urine Protein (NEGATIVE) mg/dL Urine Glucose (UA) (NEGATIVE) mg/dL Urine Ketones (NEGATIVE) mg/dL Urine Occult Blood (NEGATIVE) Urine Nitrite (NEGATIVE) Urine Bilirubin (NEGATIVE) Urine Urobilinogen (0.2-1.0) E.U./dL Ur Leukocyte Esterase (NEGATIVE) Urine RBC /HPF Urine WBC /HPF Ur Epithelial Cells /LPF Urine Bacteria (NONE TO FEW) /HPF Ketones SARS-CoV-2 RNA (ALEX) (NEGATIVE) 08/03/20 08/03/20 08/03/20 Range/Units 08:30 08:30 08:40 WBC (4.0-10.2) K/uL RBC (4.33-5.41) M/uL Hgb (13.1-16.8) g/dL Hct (39.0-49.0) % MCV (84.0-98.0) fL MCH (28.2-33.3) pg MCHC (31.7-36.0) g/dL RDW (11.2-14.1) % Plt Count (150-350) K/uL Neut % (Auto) (45.0-80.0) % Lymph % (Auto) (10.0-50.0) % [place] % (Auto) (2.0-14.0) % Eos % (Auto) (0.0-5.0) % Baso % (Auto) (0.0-2.0) % Neut # (Auto) (1.40-7.00) K/uL Lymph # (Auto) (0.50-3.50) K/uL [place] # (Auto) (0.00-1.00) K/uL Eos # (Auto) (0.00-0.50) K/uL Baso # (Auto) (0.00-0.20) K/uL PT (9.5-12.0) SEC INR APTT (24.5-32.8) SEC D-Dimer, Quantitative (0-400) ng/mL POC ABG pH (7.35-7.45) pH POC ABG pCO2 (35-48) mmHg POC ABG pO2 (83-108) mmHg POC ABG HCO3 (22-26) mmol/L POC ABG Total CO2 (23-27) mmol/L POC ABG O2 Sat (95-98) % POC ABG Base Excess (-2-3) mmol/L O2 Delivery Device Oxygen Flow Rate Sodium (136-145) mmol/L Potassium 3.5 (3.5-5.1) mmol/L Chloride (98-107) mmol/L Carbon Dioxide (21.0-32.0) mmol/L BUN (7-18) mg/dL Creatinine (0.51-1.17) mg/dL Est Cr Clr Drug Dosing Estimated GFR (MDRD) mL/min Glucose 313 H (70-99) mg/dL POC Glucose (70-99) mg/dL Hemoglobin A1c 13.7 H (4.3-5.7) % Lactic Acid (0.4-2.0) mmol/L Uric Acid (2.6-7.2) mg/dL Calcium (8.5-10.1) mg/dL Phosphorus (2.6-4.7) mg/dL Magnesium (1.8-2.4) mg/dL Total Bilirubin (0.2-1.0) mg/dL AST (15-37) U/L ALT (12-78) U/L Alkaline Phosphatase (46-116) IU/L Creatine Kinase (26-308) U/L Creatine Kinase Index (0.0-2.5) % CK-MB (CK-2) (0.00-3.60) ng/mL Troponin I (0.000-0.056) ng/mL NT-Pro-B Natriuret Pep (0-125) pg/mL Total Protein (6.4-8.2) g/dL Albumin (3.4-5.0) g/dL Triglycerides 352 H (30-150) mg/dL Cholesterol 365 H (100-200) mg/dL LDL Cholesterol, Calc 242 H (0-100) mg/dL HDL Cholesterol 53 (40-60) mg/dL TSH, Ultra Sensitive (0.358-3.740) mIU/mL Specimen Type Urine Color Urine Appearance Urine pH (5.0-9.0) Ur Specific [place] (1.005-1.030) Urine Protein (NEGATIVE) mg/dL Urine Glucose (UA) (NEGATIVE) mg/dL Urine Ketones (NEGATIVE) mg/dL Urine Occult Blood (NEGATIVE) Urine Nitrite (NEGATIVE) Urine Bilirubin (NEGATIVE) Urine Urobilinogen (0.2-1.0) E.U./dL Ur Leukocyte Esterase (NEGATIVE) Urine RBC /HPF Urine WBC /HPF Ur Epithelial Cells /LPF Urine Bacteria (NONE TO FEW) /HPF Ketones SARS-CoV-2 RNA (ALEX) Negative (NEGATIVE) 08/03/20 08/03/20 08/03/20 Range/Units 08:40 09:46 10:50 WBC (4.0-10.2) K/uL RBC (4.33-5.41) M/uL Hgb (13.1-16.8) g/dL Hct (39.0-49.0) % MCV (84.0-98.0) fL MCH (28.2-33.3) pg MCHC (31.7-36.0) g/dL RDW (11.2-14.1) % Plt Count (150-350) K/uL Neut % (Auto) (45.0-80.0) % Lymph % (Auto) (10.0-50.0) % [place] % (Auto) (2.0-14.0) % Eos % (Auto) (0.0-5.0) % Baso % (Auto) (0.0-2.0) % Neut # (Auto) (1.40-7.00) K/uL Lymph # (Auto) (0.50-3.50) K/uL [place] # (Auto) (0.00-1.00) K/uL Eos # (Auto) (0.00-0.50) K/uL Baso # (Auto) (0.00-0.20) K/uL PT (9.5-12.0) SEC INR APTT (24.5-32.8) SEC D-Dimer, Quantitative (0-400) ng/mL POC ABG pH (7.35-7.45) pH POC ABG pCO2 (35-48) mmHg POC ABG pO2 (83-108) mmHg POC ABG HCO3 (22-26) mmol/L POC ABG Total CO2 (23-27) mmol/L POC ABG O2 Sat (95-98) % POC ABG Base Excess (-2-3) mmol/L O2 Delivery Device Oxygen Flow Rate Sodium (136-145) mmol/L Potassium (3.5-5.1) mmol/L Chloride (98-107) mmol/L Carbon Dioxide (21.0-32.0) mmol/L BUN (7-18) mg/dL Creatinine (0.51-1.17) mg/dL Est Cr Clr Drug Dosing Estimated GFR (MDRD) mL/min Glucose (70-99) mg/dL POC Glucose 456 H* (70-99) mg/dL Hemoglobin A1c (4.3-5.7) % Lactic Acid (0.4-2.0) mmol/L Uric Acid (2.6-7.2) mg/dL Calcium (8.5-10.1) mg/dL Phosphorus (2.6-4.7) mg/dL Magnesium (1.8-2.4) mg/dL Total Bilirubin (0.2-1.0) mg/dL AST (15-37) U/L ALT (12-78) U/L Alkaline Phosphatase (46-116) IU/L Creatine Kinase (26-308) U/L Creatine Kinase Index (0.0-2.5) % CK-MB (CK-2) (0.00-3.60) ng/mL Troponin I (0.000-0.056) ng/mL NT-Pro-B Natriuret Pep (0-125) pg/mL Total Protein (6.4-8.2) g/dL Albumin (3.4-5.0) g/dL Triglycerides (30-150) mg/dL Cholesterol (100-200) mg/dL LDL Cholesterol, Calc (0-100) mg/dL HDL Cholesterol (40-60) mg/dL TSH, Ultra Sensitive (0.358-3.740) mIU/mL Specimen Type Urincc Urine Color Yellow Urine Appearance Clear Urine pH 5.5 (5.0-9.0) Ur Specific [place] >= 1.030 (1.005-1.030) Urine Protein 100 H (NEGATIVE) mg/dL Urine Glucose (UA) 500 H (NEGATIVE) mg/dL Urine Ketones >=160 H (NEGATIVE) mg/dL Urine Occult Blood Moderate H (NEGATIVE) Urine Nitrite Negative (NEGATIVE) Urine Bilirubin Small H (NEGATIVE) Urine Urobilinogen 0.2 (0.2-1.0) E.U./dL Ur Leukocyte Esterase Negative (NEGATIVE) Urine RBC 0-5 /HPF Urine WBC 0-5 /HPF Ur Epithelial Cells Rare /LPF Urine Bacteria Rare (NONE TO FEW) /HPF Ketones Small-20 mg/dl SARS-CoV-2 RNA (ALEX) (NEGATIVE) 08/03/20 08/03/20 08/03/20 Range/Units 11:40 13:13 13:55 WBC (4.0-10.2) K/uL RBC (4.33-5.41) M/uL Hgb (13.1-16.8) g/dL Hct (39.0-49.0) % MCV (84.0-98.0) fL MCH (28.2-33.3) pg MCHC (31.7-36.0) g/dL RDW (11.2-14.1) % Plt Count (150-350) K/uL Neut % (Auto) (45.0-80.0) % Lymph % (Auto) (10.0-50.0) % [place] % (Auto) (2.0-14.0) % Eos % (Auto) (0.0-5.0) % Baso % (Auto) (0.0-2.0) % Neut # (Auto) (1.40-7.00) K/uL Lymph # (Auto) (0.50-3.50) K/uL [place] # (Auto) (0.00-1.00) K/uL Eos # (Auto) (0.00-0.50) K/uL Baso # (Auto) (0.00-0.20) K/uL PT (9.5-12.0) SEC INR APTT (24.5-32.8) SEC D-Dimer, Quantitative (0-400) ng/mL POC ABG pH 7.2 L* 7.3 L (7.35-7.45) pH POC ABG pCO2 8 L* 15 L* (35-48) mmHg POC ABG pO2 96 100 (83-108) mmHg POC ABG HCO3 3.0 L 7.2 L (22-26) mmol/L POC ABG Total CO2 < 5.0 L 8.0 L (23-27) mmol/L POC ABG O2 Sat 96 97.3 (95-98) % POC ABG Base Excess -22 L -17 L (-2-3) mmol/L O2 Delivery Device Room air Room air Oxygen Flow Rate Not Reportable Sodium (136-145) mmol/L Potassium 3.3 L (3.5-5.1) mmol/L Chloride (98-107) mmol/L Carbon Dioxide (21.0-32.0) mmol/L BUN (7-18) mg/dL Creatinine (0.51-1.17) mg/dL Est Cr Clr Drug Dosing Estimated GFR (MDRD) mL/min Glucose 248 H (70-99) mg/dL POC Glucose (70-99) mg/dL Hemoglobin A1c (4.3-5.7) % Lactic Acid (0.4-2.0) mmol/L Uric Acid (2.6-7.2) mg/dL Calcium (8.5-10.1) mg/dL Phosphorus (2.6-4.7) mg/dL Magnesium (1.8-2.4) mg/dL Total Bilirubin (0.2-1.0) mg/dL AST (15-37) U/L ALT (12-78) U/L Alkaline Phosphatase (46-116) IU/L Creatine Kinase (26-308) U/L Creatine Kinase Index (0.0-2.5) % CK-MB (CK-2) (0.00-3.60) ng/mL Troponin I (0.000-0.056) ng/mL NT-Pro-B Natriuret Pep (0-125) pg/mL Total Protein (6.4-8.2) g/dL Albumin (3.4-5.0) g/dL Triglycerides (30-150) mg/dL Cholesterol (100-200) mg/dL LDL Cholesterol, Calc (0-100) mg/dL HDL Cholesterol (40-60) mg/dL TSH, Ultra Sensitive (0.358-3.740) mIU/mL Specimen Type Urine Color Urine Appearance Urine pH (5.0-9.0) Ur Specific [place] (1.005-1.030) Urine Protein (NEGATIVE) mg/dL Urine Glucose (UA) (NEGATIVE) mg/dL Urine Ketones (NEGATIVE) mg/dL Urine Occult Blood (NEGATIVE) Urine Nitrite (NEGATIVE) Urine Bilirubin (NEGATIVE) Urine Urobilinogen (0.2-1.0) E.U./dL Ur Leukocyte Esterase (NEGATIVE) Urine RBC /HPF Urine WBC /HPF Ur Epithelial Cells /LPF Urine Bacteria (NONE TO FEW) /HPF Ketones SARS-CoV-2 RNA (ALEX) (NEGATIVE) 08/03/20 Range/Units 14:05 WBC (4.0-10.2) K/uL RBC (4.33-5.41) M/uL Hgb (13.1-16.8) g/dL Hct (39.0-49.0) % MCV (84.0-98.0) fL MCH (28.2-33.3) pg MCHC (31.7-36.0) g/dL RDW (11.2-14.1) % Plt Count (150-350) K/uL Neut % (Auto) (45.0-80.0) % Lymph % (Auto) (10.0-50.0) % [place] % (Auto) (2.0-14.0) % Eos % (Auto) (0.0-5.0) % Baso % (Auto) (0.0-2.0) % Neut # (Auto) (1.40-7.00) K/uL Lymph # (Auto) (0.50-3.50) K/uL [place] # (Auto) (0.00-1.00) K/uL Eos # (Auto) (0.00-0.50) K/uL Baso # (Auto) (0.00-0.20) K/uL PT (9.5-12.0) SEC INR APTT (24.5-32.8) SEC D-Dimer, Quantitative (0-400) ng/mL POC ABG pH (7.35-7.45) pH POC ABG pCO2 (35-48) mmHg POC ABG pO2 (83-108) mmHg POC ABG HCO3 (22-26) mmol/L POC ABG Total CO2 (23-27) mmol/L POC ABG O2 Sat (95-98) % POC ABG Base Excess (-2-3) mmol/L O2 Delivery Device Oxygen Flow Rate Sodium 135 L (136-145) mmol/L Potassium 3.3 L (3.5-5.1) mmol/L Chloride 100 (98-107) mmol/L Carbon Dioxide 9.8 L* (21.0-32.0) mmol/L BUN 15 (7-18) mg/dL Creatinine 0.81 (0.51-1.17) mg/dL Est Cr Clr Drug Dosing 145.86 Estimated GFR (MDRD) > 60 mL/min Glucose 215 H (70-99) mg/dL POC Glucose (70-99) mg/dL Hemoglobin A1c (4.3-5.7) % Lactic Acid (0.4-2.0) mmol/L Uric Acid (2.6-7.2) mg/dL Calcium 8.8 (8.5-10.1) mg/dL Phosphorus (2.6-4.7) mg/dL Magnesium (1.8-2.4) mg/dL Total Bilirubin (0.2-1.0) mg/dL AST (15-37) U/L ALT (12-78) U/L Alkaline Phosphatase (46-116) IU/L Creatine Kinase (26-308) U/L Creatine Kinase Index (0.0-2.5) % CK-MB (CK-2) (0.00-3.60) ng/mL Troponin I (0.000-0.056) ng/mL NT-Pro-B Natriuret Pep (0-125) pg/mL Total Protein (6.4-8.2) g/dL Albumin (3.4-5.0) g/dL Triglycerides (30-150) mg/dL Cholesterol (100-200) mg/dL LDL Cholesterol, Calc (0-100) mg/dL HDL Cholesterol (40-60) mg/dL TSH, Ultra Sensitive (0.358-3.740) mIU/mL Specimen Type Urine Color Urine Appearance Urine pH (5.0-9.0) Ur Specific [place] (1.005-1.030) Urine Protein (NEGATIVE) mg/dL Urine Glucose (UA) (NEGATIVE) mg/dL Urine Ketones (NEGATIVE) mg/dL Urine Occult Blood (NEGATIVE) Urine Nitrite (NEGATIVE) Urine Bilirubin (NEGATIVE) Urine Urobilinogen (0.2-1.0) E.U./dL Ur Leukocyte Esterase (NEGATIVE) Urine RBC /HPF Urine WBC /HPF Ur Epithelial Cells /LPF Urine Bacteria (NONE TO FEW) /HPF Ketones SARS-CoV-2 RNA (ALEX) (NEGATIVE) REUBEN Results - Last 24 hrs: Microbiology 08/03/20 08:55 Influenza Type A Antigen Screen - Final Nasal, Unspecified NEGATIVE INFLUENZA A VIRUS AG REFERENCE RANGE: NEGATIVE Influenza Type B Antigen Screen - Final NEGATIVE INFLUENZA B VIRUS AG REFERENCE RANGE: NEGATIVE Med Orders - Current: Current Medications Acetaminophen (Acetaminophen 325 Mg Tab) 650 mg PO Q4H PRN PRN Reason: Pain Bupropion HCl (Bupropion 150 Mg Tab.Er) 150 mg PO DAILY EMILEE Calcium Acetate (Calcium Acetate 667 Mg Cap) 667 mg PO BIDMEALS EMILEE Dextrose/Water (50% Dextrose In Water 50 Ml Syringe) 50 ml IV ASDIRECTED PRN PRN Reason: Hypoglycemia Enoxaparin Sodium (Enoxaparin 100 Mg/1 Ml Syringe) 90 mg SUBCUT Q12H EMILEE Famotidine (Famotidine 20 Mg/2 Ml Sdv) 20 mg IVPUSH Q12H EMILEE Glucagon (Glucagon,Human Recombinant 1 Mg Vial) 1 mg IM ASDIRECTED PRN PRN Reason: Hypoglycemia Insulin Human Regular 100 unit (/ Sodium Chloride) 100 mls @ 9.072 mls/hr IV TITRATE EMILEE; Protocol Last Titration: 08/03/20 12:21 Dose: 0.075 units/kg/hr, 6.804 mls/hr Documented by: Ceftriaxone Sodium 1 gm/ (Sodium Chloride) 100 mls @ 200 mls/hr IV Q12H EMILEE Vancomycin HCl 1 gm/ Sodium (Chloride) 250 mls @ 164.986 mls/hr IV Q12H EMILEE Last Admin: 08/03/20 12:01 Dose: 164.986 mls/hr Documented by: Dextrose/Sodium Chloride (Dextrose 5%-Normal Saline) 1,000 mls @ 150 mls/hr IV ASDIRECTED EMILEE Last Admin: 08/03/20 14:59 Dose: 150 mls/hr Documented by: Sodium Chloride (Sodium Chloride 0.9% 10 Ml Syringe) 10 ml FLUSH ASDIRECTED PRN PRN Reason: Keep Vein Open Sodium Chloride (Sodium Chloride 0.9% 10 Ml Syringe) 10 ml FLUSH Q12HR PRN PRN Reason: Keep Vein Open Temazepam (Temazepam 15 Mg Cap) 15 mg PO BEDTIME PRN PRN Reason: Insomnia Discontinued Medications Calcium Acetate (Calcium Acetate 667 Mg Cap) 667 mg PO ONETIME ONE Stop: 08/03/20 09:43 Last Admin: 08/03/20 10:21 Dose: 667 mg Documented by: Ceftriaxone Sodium (Ceftriaxone 2 Gm Vial) 2 gm IVPUSH ONETIME ONE Stop: 08/03/20 10:12 Last Admin: 08/03/20 10:23 Dose: 2 gm Documented by: Dextrose/Water (50% Dextrose In Water 50 Ml Syringe) 50 ml IV ASDIRECTED PRN PRN Reason: Hypoglycemia Diazepam (Diazepam 10 Mg/2 Ml Syringe) 2.5 mg IVPUSH ONETIME ONE Stop: 08/03/20 08:34 Last Admin: 08/03/20 08:46 Dose: 2.5 mg Documented by: Diazepam (Diazepam 10 Mg/2 Ml Syringe) 2.5 mg IVPUSH ONETIME ONE Stop: 08/03/20 09:52 Last Admin: 08/03/20 10:11 Dose: 2.5 mg Documented by: Famotidine (Famotidine 20 Mg/2 Ml Sdv) 40 mg IVPUSH ONETIME ONE Stop: 08/03/20 08:32 Last Admin: 08/03/20 09:00 Dose: 40 mg Documented by: Glucagon (Glucagon,Human Recombinant 1 Mg Vial) 1 mg IM ASDIRECTED PRN PRN Reason: Hypoglycemia Sodium Chloride (Normal Saline) 1,000 mls @ 999 mls/hr IV .BOLUS ONE Stop: 08/03/20 09:33 Last Admin: 08/03/20 08:55 Dose: 999 mls/hr Documented by: Ceftriaxone Sodium 1 gm/ (Sodium Chloride) 100 mls @ 200 mls/hr IV ONETIME ONE Stop: 08/03/20 10:10 Last Admin: 08/03/20 10:13 Dose: Not Given Documented by: Sodium Chloride (Normal Saline) 1,000 mls @ 999 mls/hr IV .BOLUS ONE Stop: 08/03/20 10:44 Last Admin: 08/03/20 10:00 Dose: 999 mls/hr Documented by: Sodium Chloride (Normal Saline) 1,000 mls @ 150 mls/hr IV ASDIRECTED EMILEE Last Admin: 08/03/20 11:15 Dose: 150 mls/hr Documented by: Insulin Human Regular (Insulin Regular, Human 100 Units/Ml 3 Ml Vial) 10 unit IV ONETIME ONE Stop: 08/03/20 08:36 Last Admin: 08/03/20 08:56 Dose: 10 units Documented by: Insulin Human Regular (Insulin Regular, Human 100 Units/Ml 3 Ml Vial) 10 unit IV ONETIME ONE Stop: 08/03/20 09:47 Last Admin: 08/03/20 09:55 Dose: 10 units Documented by: Iopamidol (Iopamidol 755 Mg/Ml 100 Ml Bottle) 100 ml IVPUSH ONETIME STA Stop: 08/03/20 09:45 Last Admin: 08/03/20 10:34 Dose: 100 ml Documented by: Iopamidol (Iopamidol 755 Mg/Ml 100 Ml Bottle) Confirm Administered Dose 100 ml .ROUTE .STK-MED ONE Stop: 08/03/20 09:52 Metoprolol Tartrate (Metoprolol Tartrate 5 Mg/5 Ml Sdv) 2.5 mg IVPUSH ONETIME ONE Stop: 08/03/20 08:32 Last Admin: 08/03/20 08:42 Dose: 2.5 mg Documented by: - Exam General: Reports: Alert, Oriented, Moderate Distress Neck: Reports: Supple Lungs: Reports: Other (Tachypnea) Cardiovascular: Reports: Tachycardia GI/Abdominal Exam: Soft Extremities: Normal Inspection Neurological: Reports: No New Focal Deficit Psy/Mental Status: Reports: Alert, Normal Affect
[2020-08-03 15:12] VITALS: BP 116/67; PULSE 105
[2020-08-03] MEDS ORDERED: Calcium Acetate 667 MG Cap PO SCH (17:30)
[2020-08-03] MEDS ORDERED: cefTRIAXone 1 GM in Sodium Chloride 0.9% 100 ML IV SCH (23:00)
[2020-08-04] MEDS ORDERED: Famotidine 20 MG/2 ML SDV IVPUSH SCH (07:00)
[2020-08-04] MEDS ORDERED: buPROPion 150 MG Tab.ER PO SCH (08:00)
== END 2020-08-03 16:10 | DRG 638 ==
LOC: LL.ED 08:15 → LL.MS 09:56
PROVIDERS: ADMIT Family Medicine; ATTEND Family Medicine
DX: E11.10 Type 2 diabetes mellitus with ketoacidosis without coma (principal); E87.1 Hypo-osmolality and hyponatremia; H54.7 Unspecified visual loss; K21.9 Gastro-esophageal reflux disease without esophagitis; M54.9 Dorsalgia, unspecified; M54.2 Cervicalgia; G89.29 Other chronic pain; M19.90 Unspecified osteoarthritis, unspecified site; E86.0 Dehydration; R00.0 Tachycardia, unspecified; E83.39 Other disorders of phosphorus metabolism; I49.3 Ventricular premature depolarization; F41.8 Other specified anxiety disorders; F19.90 Other psychoactive substance use, unspecified, uncomplicated; R03.0 Elevated blood-pressure reading, without diagnosis of hypertension; R79.89 Other specified abnormal findings of blood chemistry; Z20.822 Contact with and (suspected) exposure to COVID-19; Z87.891 Personal history of nicotine dependence; Z71.6 Tobacco abuse counseling
CPT/HCPCS: 36415; 36600; 71045; 71275; 80048; 80053; 80061; 81001; 82009; 82550; 82553; 82803; 82947; 83036; 83605; 83735; 83880; 84100; 84132; 84443; 84484; 84550; 85025; 85379; 85610; 85730; 87040; 87086; 87804; 93005; A9270-GY; J0696; J1815-GY; J3360; J3370; J3490; J7030; J7042; J7050; Q9967; U0002